=== PATIENT | female | born 1965 | race Caucasian/White ===

== ENCOUNTER 2017-04-30 08:17 | Inpatient (IN) ==
--- NOTE | 2017-04-27 22:02 | Discharge Summary ---
<Tere Lopez - Last Filed: 04/27/17 21:58> Date of Encounter: 04/27/17 - Discharge Diagnosis (1) Painful total knee replacement Priority: Primary Status: Acute Qualifiers: Encounter type: initial encounter Qualified Code(s): T84.84XA - Pain due to internal orthopedic prosthetic devices, implants and grafts, initial encounter; Z96.659 - Presence of unspecified artificial knee joint (2) Status post revision of total replacement of left knee Priority: Primary Status: Acute (3) HTN (hypertension) Priority: Secondary Status: Chronic Qualifiers: Hypertension type: essential hypertension Qualified Code(s): I10 - Essential (primary) hypertension (4) Sciatica Priority: Secondary Status: Chronic Qualifiers: Laterality: unspecified laterality Qualified Code(s): M54.30 - Sciatica, unspecified side (5) Obesity Priority: Secondary Status: Chronic Qualifiers: Obesity type: due to excess calories Obesity classification: unspecified obesity classification Serious obesity comorbidity presence: without serious comorbidity Qualified Code(s): E66.09 - Other obesity due to excess calories (6) Chronic pain Priority: Secondary Status: Chronic Qualifiers: Chronic pain type: other chronic pain Qualified Code(s): G89.29 - Other chronic pain - Discharge Medications Home Medications: Levothyroxine [Synthroid] 112 mcg PO DAILY 06/24/15 [History] Omeprazole [PriLOSEC] 40 mg PO DAILY 06/24/15 [History] SUMAtriptan [Imitrex] 50 mg PO Q2H PRN 06/24/15 [History] Melatonin 10 mg PO HS PRN 08/16/15 [History] Promethazine [Phenergan] 12.5 mg PO BID PRN 08/16/15 [History] Cyclobenzaprine [Flexeril] 10 mg PO HS 06/14/16 [History] Fluticasone Propionate Nasal [Flonase] 1 spray NS DAILY 06/14/16 [History] Loratadine [Claritin] 10 mg PO DAILY PRN 06/14/16 [History] Multivitamin [Multivitamins] 1 each PO DAILY 06/14/16 [History] Sertraline [Zoloft] 100 mg PO DAILY 06/14/16 [History] Trazodone HCl 100 mg PO HS 06/14/16 [History] Aspirin Enteric Coated [Aspirin EC] 325 mg PO DAILY #21 tablet. 04/27/17 [Rx] HYDROcodone/Acet 5/325 mg [[place] 5-325 mg] 1 - 2 tab PO Q6H PRN #40 tab [Rx] Colesevelam [Welchol] 975 mg PO TID 04/30/17 [History] Enalapril Maleate [Vasotec] 5 mg PO DAILY 04/30/17 [History] Gabapentin [Neurontin] 300 mg PO TID 04/30/17 [History] Meloxicam [Mobic] 7.5 mg PO BID 04/30/17 [History] Allergies/Adverse Reactions: 3 Allergy/AdvReac Type Severity Reaction Status Date / Time Oxycodone AdvReac "doesn't Verified 04/30/17 08:48 like how it makes her feel" Primary care physician: Jessica Castillo - Patient Status Disposition: Home, Self-Care Condition: Good - Discharge Instructions Follow Up With: Jessica Castillo MD [Primary Care Provider] - - Hospital Course Hospital course: Ms. Barrientos is a 51 year old female - Time Spent with Patient Total time spent providing and/or coordinating discharge services: <Carlos Lacy - Last Filed: 05/01/17 06:49> Date of Encounter: 05/01/17 Time of Encounter: 06:48 - Discharge Diagnosis (1) Painful total knee replacement Priority: Primary Status: Chronic Qualifiers: Encounter type: subsequent encounter Qualified Code(s): T84.84XD - Pain due to internal orthopedic prosthetic devices, implants and grafts, subsequent encounter; Z96.659 - Presence of unspecified artificial knee joint (2) Status post revision of total replacement of left knee Priority: Primary Status: Acute (3) HTN (hypertension) Priority: Secondary Status: Chronic Qualifiers: Hypertension type: essential hypertension Qualified Code(s): I10 - Essential (primary) hypertension (4) Sciatica Priority: Secondary Status: Chronic Qualifiers: Laterality: unspecified laterality Qualified Code(s): M54.30 - Sciatica, unspecified side (5) Chronic pain Priority: Secondary Status: Chronic Qualifiers: Chronic pain type: other chronic pain Qualified Code(s): G89.29 - Other chronic pain (6) Acute blood loss anemia Priority: Primary Status: Acute Primary care physician: Jessica Castillo - Patient Status Functional capacity at discharge: uses cane/walker Overall status at discharge: patient is progressing back to baseline - Hospital Course Hospital course: Ms. Barrientos is a 51 year old female Status post revision left total knee. The patient had an uneventful postoperative course. They received antibiotics and physical therapy and were discharged in stable condition. There will follow -up in the office in 2 weeks. Hematocrit 30 asymptomatic - Time Spent with Patient Total time spent providing and/or coordinating discharge services:
[2017-04-30] MEDS ORDERED: Vancomycin 1,000 MG in D5% in Water 250 ML IVPB ONE ×2 (08:41→11:00)
[2017-04-30] MEDS ORDERED: *HR* FentaNYL (PF) 100 MCG/2 ML VIAL ONE (08:45)
[2017-04-30] MEDS ORDERED: Ondansetron 4 MG/2 ML VIAL ONE (08:45)
[2017-04-30] MEDS ORDERED: Dexamethasone 4 MG/ML VIAL ONE (08:45)
[2017-04-30] MEDS ORDERED: *HR* Propofol 200 MG/20 ML VIAL IVP ONE (08:45)
[2017-04-30] MEDS ORDERED: Lidocaine -MPF 2% 2 ML VIAL ONE (08:45)
[2017-04-30] MEDS ORDERED: Plasma-Lyte A (PH 7.4) 1,000 ML IVC SCH (08:45)
[2017-04-30] MEDS ORDERED: *HR* Midazolam HCl 2 MG/2 ML VIAL ONE (08:45)
--- NOTE | 2017-04-30 08:56 | History & Physical Report ---
Date of Encounter: 04/30/17 Time of Encounter: 08:55 24 Hour HP Update - Instructions Instructions: If the History and Physical is less than 30 days old and was completed prior to A.M. admission and or procedure and has NOT been updated on calendar day of procedure please complete this update prior to performing procedure. - Update Patient reports changes in Medical Condition: No Changes in examination, assessment, or condition: No Changes in Medication: No Preop tests/diagnostics Reviewed: Yes Surgery Remains Indicated: Yes Consent for Planned Operative Procedure(s) Verified: Yes - Pre-Operative Checklist Preoperative Checklist Indicated: No Prophylactic Antibiotic Ordered: Yes Is VTE Prophylaxis Indicated?: Yes
--- NOTE | 2017-04-30 09:07 | Anesthesia Evaluation PreOp ---
Date of Encounter: 04/30/17 Time of Encounter: 09:04 - Past History Planned Operation: Left total knee revision Cardiac History: Denies any Significant Hx Pulmonary History: Former smoker (quit 2 years ago) INVESTIGATOR FRAUD History: Denies Any Significant HX Other Medical History: Thyroid, GERD Anesthesia History: No Prior Anesthetic Complications Alcohol Use: none Drug use: none Medications and Allergies Levothyroxine [Synthroid] 112 mcg PO DAILY 06/24/15 [History] Omeprazole [PriLOSEC] 40 mg PO DAILY 06/24/15 [History] SUMAtriptan [Imitrex] 50 mg PO Q2H PRN 06/24/15 [History] Melatonin 10 mg PO HS PRN 08/16/15 [History] Promethazine [Phenergan] 12.5 mg PO BID PRN 08/16/15 [History] Cyclobenzaprine [Flexeril] 10 mg PO HS 06/14/16 [History] Fluticasone Propionate Nasal [Flonase] 1 spray NS DAILY 06/14/16 [History] Loratadine [Claritin] 10 mg PO DAILY PRN 06/14/16 [History] Multivitamin [Multivitamins] 1 each PO DAILY 06/14/16 [History] Sertraline [Zoloft] 100 mg PO DAILY 06/14/16 [History] Trazodone HCl 100 mg PO HS 06/14/16 [History] Aspirin Enteric Coated [Aspirin EC] 325 mg PO DAILY #21 tablet. 04/27/17 [Rx] HYDROcodone/Acet 5/325 mg [[place] 5-325 mg] 1 - 2 tab PO Q6H PRN #40 tab [Rx] Colesevelam [Welchol] 975 mg PO TID 04/30/17 [History] Enalapril Maleate [Vasotec] 5 mg PO DAILY 04/30/17 [History] Gabapentin [Neurontin] 300 mg PO TID 04/30/17 [History] Meloxicam [Mobic] 7.5 mg PO BID 04/30/17 [History] 3 Allergy/AdvReac Type Severity Reaction Status Date / Time Oxycodone AdvReac "doesn't Verified 04/30/17 08:48 like how it makes her feel" - Meds/Allergy Pre-op Review Medications Reviewed: Yes Allergies Reviewed: Yes Beta Blockers on Current Med List: No Anesthesia Results - Labs Laboratory Tests 07/30/15 08/10/15 08/10/15 11:15 16:26 16:26 WBC 4.9 Hgb 13.5 Hct 41.9 Plt Count 370 PT INR APTT Sodium 142 Potassium 3.7 Chloride 103 Carbon Dioxide 30 H BUN 5 L Creatinine 0.88 Est GFR ( Amer) Est GFR (Non-Af Amer) BUN/Creatinine Ratio 04/25/17 04/25/17 04/25/17 12:02 12:02 12:02 WBC 4.9 Hgb 12.2 Hct 38.6 Plt Count 296 PT 10.4 INR 1.0 APTT 26.6 Sodium 140 Potassium 4.0 Chloride 104 Carbon Dioxide 29 BUN 9 Creatinine 0.82 Est GFR ( Amer) > 60 Est GFR (Non-Af Amer) > 60 BUN/Creatinine Ratio 11 - Imaging EKG: report reviewed, image reviewed (SINUS TACHYCARDIA ABNORMAL RHYTHM ECG) Anesthesia Exam Last Vital Signs Temp 98.2 F 04/30/17 08:35 Pulse 84 04/30/17 08:35 Resp 18 04/30/17 08:35 BP 120/72 04/30/17 08:35 Pulse Ox 100 04/30/17 08:35 Weight: 68 kg NPO (# of Hours): >> 8 hrs - HEENT Pupil (Motor): Pupils equal, EOMI Mallampati: II Teeth: Missing, Poor dentition Denture Type: Upper: Complete Oral Opening: Greater than 3 - INVESTIGATOR FRAUD LOC: Oriented INVESTIGATOR FRAUD Motor: Normal RUE, Normal LUE, Normal RLE, Normal LLE, Normal Face - Cardiac Rhythm: Regular Murmur: None - Pulmonary Breath Sounds: bilateral Clear Respiratory Effort: Symmetrical Anesthesia Assess/Plan ASA Score: 2 Modified Gino Scale for Level of Consciousness: Cooperative, oriented, and tranquil Anesthetic Plan: General, Regional Monitoring Plan: Standard Monitors Recovery Plan: PACU
[2017-04-30] MEDS ORDERED: *HR* Labetalol 20 MG/4 ML SYRINGE IVP PRN (09:25)
[2017-04-30] MEDS ORDERED: *HR* Promethazine 25 MG/ML VIAL IVP PRN (09:25)
[2017-04-30] MEDS ORDERED: Ondansetron 4 MG/2 ML VIAL IVP ONE (09:25)
[2017-04-30] MEDS ORDERED: Ketorolac 15 MG/ML VIAL IVP ONE (09:25)
[2017-04-30] MEDS ORDERED: *HR* HYDROmorphone (PF) 1 MG/ML SYRINGE IVP PRN (09:25)
[2017-04-30] MEDS ORDERED: Dexamethasone 4 MG/ML VIAL IVP ONE (09:25)
[2017-04-30] MEDS ORDERED: Bupivacaine/Clonidine Syringe 1 EACH SYRINGE ONE (10:02)
[2017-04-30] MEDS ORDERED: ROPIVACAINE HCL/PF 0.5% 30 ML VIAL ONE (10:03)
[2017-04-30] MEDS ORDERED: ceFAZolin 2,000 MG in D5% in Water (Mini-Bag+) 100 ML IVPB ONE (10:23)
[2017-04-30] MEDS ORDERED: Vancomycin 1,000 MG VIAL ONE (10:34)
--- NOTE | 2017-04-30 10:49 | Anesthesia Procedures ---
Date of Encounter: 04/30/17 Time of Encounter: 10:10 Procedures: Anesthesia - Nerve Block Procedure Date: 04/30/17 Time: 10:10 Allergies/Adv Reactions: nka Surgical Procedure: left kne revision Checklist: Correct Patient Identifier, Correct procedure, History checked Correct side: Left Blood Thinner: No Monitor Applied: EKG, BP, Pulse Oximetry Supplemental Oxygen via Nasal Cannula (L/min): 2 Sedation: Versed (mg): 2 Sedation: Fentanyl (mcg): 100 Indication: Post Op Analgesia (per dr. ladd) Block Type: Femoral, Other (ipack) Catheter placed: No Sterile Technique: Yes Ultrasound used: Yes Anatomy identified: Yes Visual spread of Local: Yes Neuro Stimulation: Yes Nerve Stimulator Range: 0.2 - 0.4 mA Blood on Needle Aspiration: No Smooth Injection of Local: Yes Pain with Injection of Local: No Prep: Chlorhexadine Needle: 22 x 50 mm Stimuplex (for femoral), 21 x 100 mm Stimuplex (ipack) Local: 0.25% Bupivicaine w/Clonidine 20 mcg/cc (20cc for ipack), Ropivacaine ( 30cc 0.5% for femoral) Volume (cc): 30, 20 Number of Attempts: 1 Complications: None/effective block Vitals: Vital Signs/O2 Sat/Glucose, Most Recent Temp Pulse Resp BP Pulse Ox 98.2 F 83 18 111/84 97 04/30/17 08:35 04/30/17 10:00 04/30/17 08:35 04/30/17 10:00 04/30/17 10:00 Comments: [facility]
[2017-04-30] MEDS ORDERED: *HR* Phenylephrine 10 MG/ML VIAL ONE (10:53)
--- NOTE | 2017-04-30 11:25 | Orthopedic Operative Note ---
Date of procedure: 04/30/17 Pre-op diagnosis: Aseptic loosening left total knee Post-op diagnosis: same Procedure: Procedure: Left revision total knee Estimated blood loss: 400 Hardware: Metal and polyethylene replacement. Biomet SSK femur: 60, 16 x 120 Tibia: 67, 14 x 120 Constrained Addis: 22 Exam Under anesthesia: Full motion no varus valgus instability no swelling or erythema. Well-healed incision Procedural Notes: Tibial loosening. Operative procedure: The patient was brought to the operating room and placed on the operating room table. After general anesthesia was administered the operative knee was examined. Findings were noted in the exam under anesthesia. The operative extremity was prepped and draped in sterile surgical fashion. The patient received IV antibiotics prior to skin incision. A standard midline incision was made centered over the patella through the old incision. The incision was made through the skin and subcutaneous tissue. A medial parapatellar tendon approach was performed. Care was taken to preserve tissue along the medial aspect of the patella. And to protect the patella tendon. The deep MCL was released off the medial tibia. The infra patella fat pad was excised. Fluid was encountered this was normal joint fluid, Cultures were obtained and gram . The knee was brought into flexion the poly-was removed. The interface between the patient's femoral component and distal femur were disrupted with a osteotome and oscillating saw. Femoral component was removed removed without significant bone loss. Attention was then turned to the tibial component. The same technique was used to remove the tibial component by disrupting the interface between the patient's tibial component and the patients proximal tibia. The tibial component was loose, was removed without significant bone loss. The tibia was sized to a 67 it was reamed up to a 14 x 120 Trial had good fit and fixation. The femur was sized to a 60, was reamed up to a 16 x 120 The finishing guide was seated and the box cut was made. The trial had good fit and fixation. Both trial components were seated and the 22 constrained [place]is was seated and secured. The knee had full flexion and full extension with no instability. Patella had excellent patella tracking. The trial components were removed. The knee sat for 2 minutes with a Betadine saline solution. It was irrigated out with 2 L of pulse irrigation. The components were assembled on the back table, the tibia cemented first followed by the femur. The 22 constrained liner was seated and secure. The knee was brought to full extension while the cement hardened. After the cement hardened the knee was irrigated out again. The PA close the knee. The extensor mechanism was closed with a running #2 Fiberwire suture and a running #2 PDS suture. The deep tissue was irrigated and closed deep with #1 PDS suture superficially with 0 PDS suture. The skin was closed with skin mela. The patient was placed in a sterile dressing and postoperative brace. They were extubated and transferred to recovery room in stable condition. Anesthesia: GETA Surgeon: Carlos Lacy Condition: stable Disposition: PACU
[2017-04-30 12:16] LABS: Hematocrit 33.2 % (35.3-44.9)
[2017-04-30] MEDS ORDERED: Ringers Solution, Lactated 1,000 ML ONE (12:17)
[2017-04-30 12:19] LABS: Hemoglobin 10.6 g/dL (11.5-15.4)
--- NOTE | 2017-04-30 12:21 | Anesthesia Evaluation Post Op ---
Date of Encounter: 04/30/17 Time of Encounter: 12:21 - Vital Signs Vital Signs: Last Vital Signs Temp 97.3 F L 04/30/17 11:49 Pulse 75 04/30/17 12:09 Resp 13 04/30/17 12:09 BP 95/61 04/30/17 12:09 Pulse Ox 100 04/30/17 12:09 - Lungs Lungs: Clear Ascult./Percussion - Airway Airway: Non-obstructed - Cardiovascular Regular Rate - Mental Status Mental Status: Alert & Oriented, Answers Appropriately - Pain Pain Scale: 3 - Nausea Vomiting Nausea Vomiting: Not Present - Hydration Hydration: Ice chips - Discharge PostOp Status: Transfer Patient to floor
[2017-04-30] MEDS ORDERED: Acetaminophen IV 1,000 MG/100 ML INFUS..BTL ONE (12:24)
[2017-04-30] MEDS ORDERED: Acetaminophen IV 1,000 MG/100 ML INFUS..BTL IVPB ONE (12:30)
[2017-04-30] MEDS ORDERED: SUMAtriptan succinate 50 MG TABLET PO PRN (12:56)
[2017-04-30] MEDS ORDERED: Melatonin 3 MG TABLET PO PRN (12:56)
[2017-04-30] MEDS ORDERED: Loratadine 10 MG TABLET PO PRN (12:56)
[2017-04-30] MEDS ORDERED: traMADol 50 MG TABLET PO PRN (12:56)
[2017-04-30] MEDS ORDERED: Naloxone 0.4 MG/ML INJ IVP PRN (12:56)
[2017-04-30] MEDS ORDERED: MOM Conc 10 ML UD.LIQ PO PRN (12:56)
[2017-04-30] MEDS ORDERED: Ondansetron 4 MG/2 ML VIAL IVP PRN (12:56)
[2017-04-30] MEDS ORDERED: Sennosides 8.6 MG TABLET PO PRN (12:56)
[2017-04-30] MEDS ORDERED: Temazepam 15 MG CAPSULE PO PRN (12:56)
[2017-04-30] MEDS ORDERED: Ringers Solution, Lactated 1,000 ML IVC SCH (12:56)
[2017-04-30] MEDS: Fluticasone Propionate Nasal 50 MCG/SPRAY BOTTLE NS SCH (13:51)
[2017-04-30] MEDS: *HR* HYDROcodone/Acet 5/325 mg TABLET PO PRN (14:12)
[2017-04-30] MEDS: Gabapentin 300 MG CAPSULE PO SCH ×3 (14:15→21:54)
[2017-04-30] MEDS: Multivit/Ca/Min/Fe/FA 1 TAB TABLET PO SCH (14:20)
[2017-04-30] MEDS: ceFAZolin 2,000 MG in D5% in Water 100 ML IVPB SCH (17:15)
[2017-04-30] MEDS: *HR* Enoxaparin 30 MG/0.3 ML SYRINGE SQ SCH (17:16)
[2017-04-30] MEDS ORDERED: *HR* Enoxaparin 30 MG/0.3 ML SYRINGE SQ SCH (18:00)
[2017-04-30] MEDS: *HR* HYDROmorphone (PF) 1 MG/ML SYRINGE IVP PRN ×2 (18:36→21:55)
[2017-04-30] MEDS ORDERED: traZODone 50 MG TABLET PO SCH (21:00)
[2017-05-01] MEDS: ceFAZolin 2,000 MG in D5% in Water 100 ML IVPB SCH (00:26)
[2017-05-01] MEDS: *HR* HYDROmorphone (PF) 1 MG/ML SYRINGE IVP PRN (00:27)
[2017-05-01] MEDS: *HR* Enoxaparin 30 MG/0.3 ML SYRINGE SQ SCH (05:39)
[2017-05-01 06:07] LABS: Hematocrit 30.7 % (35.3-44.9); Hemoglobin 9.8 g/dL (11.5-15.4)
[2017-05-01] MEDS: *HR* HYDROcodone/Acet 5/325 mg TABLET PO PRN ×2 (06:11→10:49)
[2017-05-01 06:35] LABS: BUN/Creatinine Ratio 11 (6-26); Blood Urea Nitrogen 8 mg/dL (7-20); Calcium 8.6 mg/dL (8.6-10.8); Carbon Dioxide 30 mEq/L (19-29); Chloride 99 mEq/L (98-109); Glucose 127 mg/dL (70-99); Osmolality,Calculated 288 (280-300); Potassium 4.3 mEq/L (3.5-4.5); Sodium 139 mEq/L (136-145); eGFR For African Americans > 60 (> 60); eGFR For Non-African Americans > 60 (> 60)
--- NOTE | 2017-05-01 06:50 | Orthopedics Progress Note ---
Date of Encounter: 05/01/17 Time of Encounter: 06:50 - Assessment and Plan (1) Painful total knee replacement Current Visit: Yes Status: Chronic Qualifiers: Encounter type: subsequent encounter Qualified Code(s): T84.84XD - Pain due to internal orthopedic prosthetic devices, implants and grafts, subsequent encounter; Z96.659 - Presence of unspecified artificial knee joint (2) Status post revision of total replacement of left knee Current Visit: Yes Status: Acute (3) HTN (hypertension) Current Visit: Yes Status: Chronic Qualifiers: Hypertension type: essential hypertension Qualified Code(s): I10 - Essential (primary) hypertension (4) Sciatica Current Visit: Yes Status: Chronic Qualifiers: Laterality: unspecified laterality Qualified Code(s): M54.30 - Sciatica, unspecified side (5) Chronic pain Current Visit: Yes Status: Chronic Qualifiers: Chronic pain type: other chronic pain Qualified Code(s): G89.29 - Other chronic pain (6) Acute blood loss anemia Current Visit: Yes Status: Acute Subjective Interval history: Patient was seen this morning doing well without complaints. Afebrile vital signs stable. Operative extremity: Neurovascularly intact Dressing clean dry and intact Calves nontender Assessment and plan: Continue with postoperative care Hematocrit 30 discharged today Objective Vital signs: Vital Signs Temp Pulse Resp BP Pulse Ox 05/01/17 00:44 98.0 F 100 17 100/63 92 04/30/17 21:53 98.2 F 111 17 110/71 95 04/30/17 18:32 110/71 04/30/17 15:58 97.6 F 95 14 99/62 95 04/30/17 15:28 98.7 F 90 12 99/63 95 04/30/17 14:17 98.9 F 99 16 120/77 98 04/30/17 13:41 98.3 F 85 16 102/72 96 04/30/17 13:30 98 04/30/17 13:06 97.4 F L 84 15 106/68 98 04/30/17 12:49 97.6 F 74 13 102/68 99 04/30/17 12:39 79 12 106/67 100 04/30/17 12:29 78 12 101/61 99 04/30/17 12:19 97.6 F 78 15 101/64 100 04/30/17 12:09 75 13 95/61 100 04/30/17 11:59 86 17 99/62 99 04/30/17 11:49 97.3 F L 61 14 103/64 100 04/30/17 10:00 83 111/84 97 04/30/17 08:35 98.2 F 84 18 120/72 100 Intake and Output 04/30/17 04/30/17 05/01/17 15:59 23:59 07:59 Intake Total 200 / 200 100 / 100 Output Total 800 / 800 Balance -600 / -600 100 / 100 Intake: IV Fluids 200 / 200 100 / 100 Ofirmev 1,000 mg/100 ml 1 100 / 100 ,000 mg In 100 ml @ 400 mls/hr IVPB ONCE ONE Rx#: [id number] Ancef 2,000 MG In 100 / 100 Dextrose 5% (Minibag+) 100 ML 100 ML @ 200 mls/ hr IVPB PREOP ONE Rx#: [id number] Ancef 2,000 MG In 100 / 100 Dextrose 5% 100 ML @ 200 mls/hr IVPB Q8HR RADHA Rx#: [id number] Output: Urine 400 / 400 Estimated Blood Loss 400 / 400 Other: Weight 67.585 kg - Labs CBC & BMP: 05/01/17 05:15 05/01/17 05:15 Labs: Abnormal lab results Hgb 9.8 g/dL (11.5-15.4) L 05/01/17 05:15 Hct 30.7 % (35.3-44.9) L 05/01/17 05:15 Carbon Dioxide 30 mEq/L (19-29) H 05/01/17 05:15 Glucose 127 mg/dL (70-99) H 05/01/17 05:15 - VTE Documentation of Mechanical Device: Venous foot pump, device Consult Discharge Plan - Plan Referrals: Jessica Castillo MD [Primary Care Provider] -
[2017-05-01 07:27] VITALS: BP 108/68
[2017-05-01] MEDS: Gabapentin 300 MG CAPSULE PO SCH (08:27)
[2017-05-01] MEDS: Multivit/Ca/Min/Fe/FA 1 TAB TABLET PO SCH (08:27)
[2017-05-01] MEDS: Fluticasone Propionate Nasal 50 MCG/SPRAY BOTTLE NS SCH (08:28)
--- NOTE | 2017-05-01 12:09 | Event Note ---
Date of Encounter: 05/02/17 Time of Encounter: 12:08 PCR - Left TKR - revision - POD#1 Discharged* D/C plan:.HH
--- NOTE | 2017-05-01 12:12 | Physician Discharge Referral ---
Home Health/Hosp Referral Info Transfer to: Home Health Provider in Charge Post Discharge: PCP - Diagnosis (1) Painful total knee replacement Priority: Primary Status: Chronic (2) Status post revision of total replacement of left knee Priority: Primary Status: Acute (3) HTN (hypertension) Priority: Secondary Status: Chronic (4) Sciatica Priority: Secondary Status: Chronic (5) Obesity Priority: Secondary Status: Chronic (6) Chronic pain Priority: Secondary Status: Chronic - Respiratory Orders None Smoking Cessation: Smoking cessation has been advised. For more information, call the [place] Tobacco Quit Line at 8-381-DVQR-NOW. - Dressing/Wound Care Type of Dressing/Treatments w/Frequency: Opsite dressing, leave intact until first post-operative visit. If dressing becomes >50% saturated, contact office, remove dressing and place appropriate dressing in its place. Do not allow for dressing to get wet. [place] in place, plan to remove at post-operative day #14-16. . - Diet/Nutrition Diet/Nutrition Orders: Regular - Activity Activity Orders: Up ad sameer, Ambulate, Walker - Services Needed Following services are medically necessary services: Nursing, Home Health Aide, Physical Therapy, Occupational Therapy Home Care Orders: Total Joint Precautions x 6 weeks Apply cold therapy wrap 3-6x/day for 20 minutes at a time. Encourage ambulation throughout the day Use Incentive spirometer 10x/hour. Elevate affected extremity above heart as tolerated. Brace: Wear knee immobilizer at night x 2 weeks - Transfer Medications Home Medications: Levothyroxine [Synthroid] 112 mcg PO DAILY 06/24/15 [History] Omeprazole [PriLOSEC] 40 mg PO DAILY 06/24/15 [History] SUMAtriptan [Imitrex] 50 mg PO Q2H PRN 06/24/15 [History] Melatonin 10 mg PO HS PRN 08/16/15 [History] Promethazine [Phenergan] 12.5 mg PO BID PRN 08/16/15 [History] Cyclobenzaprine [Flexeril] 10 mg PO HS 06/14/16 [History] Fluticasone Propionate Nasal [Flonase] 1 spray NS DAILY 06/14/16 [History] Loratadine [Claritin] 10 mg PO DAILY PRN 06/14/16 [History] Multivitamin [Multivitamins] 1 each PO DAILY 10/07/16 [History] Sertraline [Zoloft] 100 mg PO DAILY 06/14/16 [History] Trazodone HCl 100 mg PO HS 06/14/16 [History] Aspirin Enteric Coated [Aspirin EC] 325 mg PO DAILY #21 tablet. 04/27/17 [Rx] HYDROcodone/Acet 5/325 mg [[place] 5-325 mg] 1 - 2 tab PO Q6H PRN #40 tab [Rx] Colesevelam [Welchol] 975 mg PO TID 04/30/17 [History] Enalapril Maleate [Vasotec] 5 mg PO DAILY 04/30/17 [History] Gabapentin [Neurontin] 300 mg PO TID 04/30/17 [History] Meloxicam [Mobic] 7.5 mg PO BID 04/30/17 [History] Allergies/Adverse Reactions: 3 Allergy/AdvReac Type Severity Reaction Status Date / Time Oxycodone AdvReac "doesn't Verified 04/30/17 08:48 like how it makes her feel" Certification: Further, I certify that my clinical findings support that this patient is homebound (i.e. absences from home require considerable and taxing effort and are for medical reasons or tenriism services or infrequently or short duration when for other reasons) because: Homebound Reason: Post-surgery restriction and or conditions limit ability to leave home Attestation: My signature below is to certify that this patient is under my care and that I, or nurse practitioner, or a physician's machine operator assistant working with me, has a face-to -face encounter with this patient.
== END 2017-05-01 12:24 | disposition home or self-care (01) | DRG 467 ==
LOC: SAMDAY 08:17 → 3NENU 12:53
PROVIDERS: ADMIT Orthopaedic Surgery; ATTEND Orthopaedic Surgery